=== PATIENT | female | born 1945 | race Asian ===

== ENCOUNTER → 2020-09-18 | Outpatient (CLI) | payer MEDICARE, OTHER ==
--- NOTE | 2020-09-18 15:01 | US ---
EXAMINATION TYPE: US thyroid st tissue head/neck DATE OF EXAM: 09/18/2020 COMPARISON: US 12/09/2013 CLINICAL HISTORY: E04.1 Thyroid nodule. GLAND SIZE: Right Lobe: 8.1 x 3.0 x 4.3 cm Overall Parenchyma: Grossly heterogeneous Left Lobe: 8.0 x 3.3 x 4.4 cm Overall Parenchyma: Grossly heterogeneous Isthmus Thickness: 1.2 cm NODULES RIGHT: # of nodules measured on right: 0 LEFT: # of nodules measured on left: 0 ISTHMUS: # of nodules measured in the isthmus: 0 IMPRESSION: Markedly heterogeneous thyroid without focal nodule identified. 2017 ACR TI-RADS LEVEL: TR-RADS 1 - BENIGN: No FNA *Highest TI-RADS level nodule reported
== END | disposition home or self-care (01) ==
LOC: RADUSWWP 12:52
PROVIDERS: ATTEND Family Medicine
DX: E04.1 Nontoxic single thyroid nodule (principal)
CPT/HCPCS: 76536